=== PATIENT | male | born 1950 | race Caucasian/White ===

== ENCOUNTER 2017-07-04 05:38 | Emergency (ER) | payer MEDICARE, OTHER ==
[2017-07-04] MEDS ORDERED: Ketorolac Tromethamine 30 MG/ML VIAL ONE (07:52)
[2017-07-04] MEDS ORDERED: Lorazepam 2 MG/ML VIAL ONE (07:52)
--- NOTE | 2017-07-04 08:43 | CT ---
CT CERVICAL SPINE WITHOUT CONTRAST: History: Pain. Comparison: None. FINDINGS: No acute fracture or malalignment. Odontoid process is normal. Occipital condyles are intact. No acute fracture or malalignment. Paraspinal soft tissues are unremarkable. Lung apices are clear. IMPRESSION: No acute fracture or malalignment. POS: [facility]
== END 2017-07-04 08:51 | disposition home or self-care (01) ==
LOC: ERS 05:38
DX: S16.1XXA Strain of muscle, fascia and tendon at neck level, initial encounter (principal); I10 Essential (primary) hypertension; Z79.899 Other long term (current) drug therapy; X58.XXXA Exposure to other specified factors, initial encounter
CPT/HCPCS: 72125; 96372; J1885; J2060